=== PATIENT | male | born 1965 | race Caucasian/White ===

== ENCOUNTER 2024-01-08 08:48 | Emergency (ER) | payer MEDICARE, MEDICAID, SELFPAY ==
[2024-01-08] VITALS (35 sets, daily range): BP systolic 116–199; BP diastolic 66–111; PULSE 72–124; TEMP 36.3; O2SAT 72–97
--- NOTE | 2024-01-08 08:58 | XR_ITS ---
The [address] [address] Patient Name: MARIA ESTHER BARNES MRN: [id number] date: 1965 Sex: M Assigned Patient Location: ED.MAIN Current Patient Location: ED.MAIN Accession/Order Number: [id number] Exam Date: 01/08/2024 09:15 Report Date: 01/08/2024 09:43 At the request of: DELANEY HERNANDEZ Procedure: XR chest 1V EXAMINATION: XR chest 1V HISTORY: sob COMPARISON: 05/12/2022 TECHNIQUE: Supine FINDINGS: LUNGS: Near complete opacification of the left hemithorax obscuring the diaphragm and heart. Tracheostomy cannula projects of the mid trachea, normal position. The right lung is clear VASCULATURE: No increased pulmonary vasculature. PLEURA: No pneumothorax. Likely left pleural effusion CARDIAC: No cardiomegaly or cardiac silhouette abnormality. MEDIASTINUM: No visible mass or adenopathy. Left pacemaker BONES: No fracture or visible bone lesion. OTHER: Right central venous catheter tips project over the right atrium XR/XR chest 1V IMPRESSION: Near complete opacification of the left hemithorax Electronically authenticated by: PRESTON CHEN Date: 01/08/2024 09:43
[2024-01-08 09:15] LABS: Hematocrit 39.1 % (42.0-54.0); Hemoglobin 13.5 g/dL (14.0-18.0); Mean Corpuscular HGB Conc 34.5 g/dL (29.9-35.2); Mean Corpuscular Hemoglobin 30.4 pg (25.9-34.0); Mean Corpuscular Volume 88.1 fL (80.0-94.0); Mean Platelet Volume 9.7 fL (9.5-13.5); Platelet Count 228 10^3/uL (150-450); Red Blood Count 4.44 10^6/uL (4.70-6.10); Red Cell Distribution Width 15.2 % (11.0-15.0); White Blood Count 20.1 10^3/uL (4.0-11.0)
[2024-01-08 09:20] LABS: PCO2 VBG 42.8 mmHg (40.0-52.0); pH VBG 7.369 (7.330-7.430)
[2024-01-08] MEDS: AMIODARONE IN DEXTROSE,ISO-OSM 150 MG/100 ML PIGGYBACK 600 MG IV (09:26)
[2024-01-08 09:27] LABS: Segmented Neut Absolute Manual 18.49 10^3/uL (1.4-6.5)
--- NOTE | 2024-01-08 09:32 | ED.GENADUL1 ---
HPI HPI - General Adult General Chief complaint: Shortness of Breath/Dyspnea Stated complaint: GENERAL WEAKNESS Time Seen by Provider: 01/08/24 08:52 Source: EMR Mode of arrival: ambulance Limitations: language barrier and physical limitation History of Present Illness HPI narrative: Patient is a 58-year-old male who is presenting from [facility] secondary to hypoxia, confusion weakness. Patient's medical physician is Dr. Matias. Patient has been at the [facility] previously. Patient has past medical history of pacemaker, type 1 diabetes, tremor, chronic kidney disease, anemia, BPH, acute respiratory failure with hypoxia, hypercholesterolemia, hypertension, tracheotomy, IA, renal dialysis, CHF, A-fib, cardiac arrest, bilateral amputee AKA. Patient is a full code. Patient goes to dialysis on Monday Patient does albuterol nebulizers, lactulose, levothyroxine, midodrine, oxycodone, vitamins, patient has been on lactulose as well. Patient is on amiodarone tablets, Eliquis. All systems are negative except as noted/marked. All systems reviewed and otherwise negative. Nurses note and vital signs reviewed and patient is not hypoxic. General: The patient appears well and in no apparent distress. Patient is resting comfortably on cart. Patient is not toxic, lethargic, or listless Skin: Warm, dry, no pallor noted. There is no rash noted. No petechiae, purpura. Head: Normocephalic, atraumatic Eye: Normal conjunctiva, no drainage, EOMI. PERRL Ears, Nose, Mouth, and Throat: oral mucosa is moist. Patient missing multiple teeth, no other intraoral pathology noted. Nares patent. Mouth without vesicles. Cardiovascular: Regular Rate and Rhythm, no murmur, gallop, rub. Patient has dialysis catheter to the right upper chest, no signs of infection or drainage. Respiratory: Patient is in no distress, no accessory muscle use, lungs are clear to auscultation, no wheezing, rales or rhonchi Back: non-tender, no CVA tenderness bilaterally to percussion. No CT LS midline pain GI: Soft, no tenderness to palpation, no masses appreciated. No rebound, guarding, or rigidity noted. No distention Musculoskeletal: Patient has full range of motion of all of the extremities, patient is a bilateral AKA. Patient has some redness and stage I ulcers to bilateral distal amputees of his lower extremities., no motor, sensory, or focal neurological deficits : Patient is circumcised, mild tenderness to palpation to bilateral testicles. No redness or signs of foreign years. Patient's diaper is covered in stool. Neurological: A&O x\2, mumbles, does not talk in complete sentences, patient knows his name and hospital he is at. Psychiatric: Cooperative Related Data Home Medications ?Medication ?Instructions ?Recorded ?Confirmed apixaban 2.5 mg tablet (Eliquis) 2.5 mg feeding tube BID 01/08/24 01/08/24 buspirone 15 mg tablet 15 mg PO BID 01/08/24 01/08/24 ceftazidime 2 gram solution for 2 g IV Q8H 01/08/24 01/08/24 injection clopidogrel 75 mg tablet 75 mg feeding tube DAILY 01/08/24 01/08/24 dicyclomine 20 mg tablet 20 mg PO BID PRN abdominal pain 01/08/24 01/08/24 docusate sodium 100 mg capsule 100 mg PO BID 01/08/24 01/08/24 (Colace) ferrous sulfate 325 mg (65 mg 325 mg PO DAILY 01/08/24 01/08/24 iron) tablet,delayed release guaifenesin 100 mg/5 mL oral 200 mg PO Q6H PRN congestion 01/08/24 01/08/24 liquid (Adult Tussin Chest Congestion) hydroxyzine HCl 25 mg tablet 25 mg PO Q6H PRN itching 01/08/24 01/08/24 ipratropium 0.5 mg-albuterol 3 mg 3 ml inhalation Q2H PRN shortness 01/08/24 01/08/24 (2.5 mg base)/3 mL nebulization of breath soln lactulose 10 gram/15 mL oral 20 g feeding tube DAILY 01/08/24 01/08/24 solution (Enulose) levetiracetam 250 mg tablet 250 mg PO DAILY 01/08/24 01/08/24 levetiracetam 250 mg tablet 250 mg PO DAILY 01/08/24 01/08/24 (Keppra) levetiracetam 500 mg tablet 500 mg PO DAILY 01/08/24 01/08/24 levothyroxine 50 mcg capsule 50 mcg PO DAILY 01/08/24 01/08/24 loperamide 2 mg capsule (Imodium 2 mg PO Q6H PRN loose stool 01/08/24 01/08/24 A-D) lorazepam 0.5 mg tablet (Ativan) 0.5 mg feeding tube Q6H PRN anxiety 01/08/24 01/08/24 midodrine 10 mg tablet 5 mg PO TID 01/08/24 01/08/24 midodrine 10 mg tablet 10 mg feeding tube Q4H PRN 01/08/24 01/08/24 hypotension mupirocin 2 % topical ointment 1 applic topical Q6H PRN pain 01/08/24 01/08/24 mupirocin 2 % topical ointment 1 applic topical QID 01/08/24 01/08/24 ondansetron HCl 4 mg tablet 4 mg PO Q8H 01/08/24 01/08/24 oxycodone 5 mg capsule 5 mg PO Q6H PRN pain 01/08/24 01/08/24 sertraline 100 mg tablet (Zoloft) 100 mg PO DAILY 01/08/24 01/08/24 Allergies Allergy/AdvReac Type Severity Reaction Status Date / Time lisinopril AdvReac Severe Unknown Verified 01/08/24 09:21 losartan AdvReac Severe Unknown Verified 01/08/24 09:21 morphine AdvReac Severe Unknown Verified 01/08/24 09:21 Opioids - Morphine Analogues AdvReac Severe Unknown Verified 01/08/24 09:21 shellfish derived AdvReac Severe Unknown Verified 01/08/24 09:21 Opioid HPI Opioid Management Most Recent Opioid Data: No Data to Display PFSH PFSH Social History Little interest or pleasure in doing things: not at all Feeling down, depressed, or hopeless: not at all Exam Constitutional Vital Signs, click to edit/add: Last Vital Signs Temp 97.3 F L 01/08/24 08:54 Pulse 81 01/08/24 12:30 Resp 25 H 01/08/24 12:30 BP 186/90 H 01/08/24 12:30 Pulse Ox 96 01/08/24 12:30 O2 Del Method Room Air 01/08/24 11:45 Course Vital Signs Vital signs: Vital Signs Temperature 97.3 F L 01/08/24 08:54 Pulse Rate 82 01/08/24 08:54 Respiratory Rate 22 H 01/08/24 08:54 Blood Pressure 152/87 H 01/08/24 08:54 Pulse Oximetry 93 L 01/08/24 08:54 Oxygen Delivery Method Venturi Mask 01/08/24 08:54 Temperature 97.3 F L 01/08/24 08:54 Pulse Rate 81 01/08/24 12:30 Respiratory Rate 25 H 01/08/24 12:30 Blood Pressure 186/90 H 01/08/24 12:30 Pulse Oximetry 96 01/08/24 12:30 Oxygen Delivery Method Room Air 01/08/24 11:45 Medical Decision Making MDM Narrative Medical decision making narrative: 899 patient has a wide-complex arrhythmia, intermittently going between 100-1 10 but nothing sustained above 100. Patient is started on amiodarone push and drip. Patient has multiple comorbidities. We will be reaching out to patient's Pap estate attorney or family to find out what hospital system he has been at previously and started initiating transfer once more lab work and testing comes back. 944 patient case was discussed with Aurea, patient's significant other. Patient was just recently at the [facility] for pneumonia. We are currently calling for transfer to the [facility]. She is aware of patient's intermittent ventricular tachycardia, hypoxia, and need for transfer secondary to needing tertiary care center. Patient has just recently been at the [facility]. Patient is a full code. Uncertain if patient had dialysis today or not, we are calling facility to confirm whether he did have dialysis today or not. Patient goes to dialysis on Monday, Monday, , Monday. Patient according to APR appears to be on Plavix and Eliquis, TECHNIQUE: Supine CXR FINDINGS: LUNGS: Near complete opacification of the left hemithorax obscuring the diaphragm and heart. Tracheostomy cannula projects of the mid trachea, normal position. The right lung is clear VASCULATURE: No increased pulmonary vasculature. PLEURA: No pneumothorax. Likely left pleural effusion CARDIAC: No cardiomegaly or cardiac silhouette abnormality. MEDIASTINUM: No visible mass or adenopathy. Left pacemaker BONES: No fracture or visible bone lesion. Spittle for transfer. Electronically authenticated by: PRESTON CHEN Date: 01/08/2024 09:43 1005 CATHLEEN CARROLL, speaking to nursing staff at [facility]. Patient only had few minutes - 5 to 10 minutes of dialysis this morning, and then he was transferred to the ER. 1022 patient has BUN of 169/creatinine 5.69. BNP >35,000. PTT 40. WBC 20, H&H is 13/39, platelets 228. Patient only had extreme minimal dilation of 5 to 10 minutes this morning. I did speak to the transfer line, I also spoke to the medicine quarterback at both [place] [address] Trujillo, is excepting the transfer and patient will be admitted to Dr. Lundberg. Patient will be transferred by EMS. Chest x-ray shows left pleural effusion of significance. Patient has been given 150 mg amiodarone bolus and is currently on a drip which has helped limit the intermittent wide complex arrhythmias moderately. 1240 patient has become slightly hypertensive, blood pressures in the 180s/90s. Patient has right upper chest dialysis catheter. 2 IVs have been established. Patient does have leukocytosis of 20,000, we do not have a source at this time. Patient's heart rate and cardiac rhythm has improved with amiodarone, and is been more stable normal sinus rhythm at time of transfer at this time. Patient be admitted to the medical team. Patient is currently still on amiodarone drip. Patient BUN and creatinine were elevated, BUN 169, creatinine 5.69. Patient did not complete his dialysis today, he only had a extremely short course of dialysis this morning Critical care time 55 minutes exclusive from separate billable procedures that were performed. The following was considered in the determination of critical care but not limited to the level of medical decision making, intensive cardiac and/or respiratory monitoring, frequent vital sign monitoring, evaluation of laboratory studies, evaluation of radiographic studies, oxygen monitoring, and constant monitoring and speaking to family at bedside Medical Records Medical records reviewed: Yes I reviewed the patient's medical records Lab Data Lab results reviewed: Yes I reviewed the patient's lab results Labs: Lab Results 01/08/24 Range/Units 09:08 WBC 20.1 H (4.0-11.0) 10^3/uL RBC 4.44 L (4.70-6.10) 10^6/uL Hgb 13.5 L (14.0-18.0) g/dL Hct 39.1 L (42.0-54.0) % MCV 88.1 (80.0-94.0) fL MCH 30.4 (25.9-34.0) pg MCHC 34.5 (29.9-35.2) g/dL RDW 15.2 H (11.0-15.0) % Plt Count 228 (150-450) 10^3/uL MPV 9.7 (9.5-13.5) fL Seg Neuts % (Manual) 92.0 H (43.0-75.0) Lymphocytes % (Manual) 1.0 L (20.5-60.0) % Monocytes % (Manual) 5.0 (1.7-12.0) % Eosinophils % (Manual) 2.0 (0.9-7.0) % Basophils % (Manual) 0.0 L (0.2-2.0) % Neutrophils # (Manual) 18.49 H (1.4-6.5) 10^3/uL Lymphocytes # (Manual) 0.20 L (1.20-3.80) 10^3/uL Monocytes # (Manual) 1.00 H (0.30-0.80) 10^3/uL Eosinophils # (Manual) 0.40 (0.00-0.70) 10^3/uL Basophils # (Manual) 0.00 (0.00-0.10) 10^3/uL PT 13.5 H (9.0-11.6) sec INR 1.31 APTT 40.2 H* (22.3-36.2) sec VBG pH 7.369 (7.330-7.430) VBG pCO2 42.8 (40.0-52.0) mmHg Sodium 140 (136-145) mmol/L Potassium 4.3 (3.5-5.1) mmol/L Chloride 98 (98-107) mmol/L Carbon Dioxide 21.5 (21.0-32.0) mmol/L Anion Gap 24.8 BUN 169.0 H* (7.0-18.0) mg/dL Creatinine 5.69 H* (0.70-1.30) mg/dL Est GFR ( Amer) 13 L (>=60 mL/min/1.73m^2) Est GFR (Non-Af Amer) 10 L (>=60 mL/min/1.73m^2) BUN/Creatinine Ratio 29.7 Glucose 212 H (74-106) mg/dL Lactate 2.7 H* (0.4-2.0) mmol/L Calcium 9.4 (8.5-10.1) mg/dL Total Bilirubin 1.0 (0.2-1.0) mg/dL AST 46 H (15-37) U/L ALT 51 (16-63) U/L Alkaline Phosphatase 110 (46-116) U/L Troponin I High Sens 30.5 (4.0-76.1) pg/mL NT-Pro-B Natriuret Pep >03336.0 H* (<=900.0) pg/mL Total Protein 7.3 (6.4-8.2) g/dL Albumin 1.8 L (3.4-5.0) g/dL Globulin 5.5 g/dL Albumin/Globulin Ratio 0.3 Lipase 66.0 (16.0-77.0) U/L Free T4 0.65 L (0.76-1.46) ng/dL TSH & Free T4 Interp 23.819 H (0.358-3.740) uIU/mL Imaging Data CT scan - pelvis: Radiologist's impression: ITS Impressions Chest X-Ray 01/08/24 08:58 IMPRESSION: Near complete opacification of the left hemithorax Electronically authenticated by: PRESTON CHEN Date: 01/08/2024 09:43 ECG Data Attestation: I personally reviewed and interpreted this ECG as follows: (EKG #1. Wide complex rhythm, wide QRS, no acute ST elevation, will compare to old EKG. Old EKG on April 03, 2022, these are new acute changes on today's EKG.) Prior ECG tracings: available for review (I have compared EKG today to April 03, 2022) Interpretation: EKG #2. Patient has baseline normal sinus rhythm 81 beats a minute. PVC noted. QTc of 327, patient does not have sustained wide-complex complexes. It is noted that patient is going in and out of wide-complex sustained rhythm, no tachycardia noted with heart rate greater than 100. Patient will then intermittently go into a baseline of normal sinus rhythm as well. Discharge Plan Discharge Chief Complaint: Shortness of Breath/Dyspnea Clinical Impression: Ventricular tachycardia, Hypoxia, Pleural effusion, left, End-stage renal disease (ESRD), Leukocytosis, Cardiac arrhythmia Patient Disposition: [facility] Time of Disposition Decision: 09:55 Discharge Location: [facility] Discharge location: [facility], Dr LUNDBERG Condition: Serious Mode of Transportation: EMS
[2024-01-08 09:42] LABS: INR 1.31; Prothrombin Time 13.5 sec (9.0-11.6)
[2024-01-08] MEDS: AMIODARONE IN DEXTROSE,ISO-OSM 360 MG/200 ML PLAST..BAG 33.333 MG IV (09:42)
[2024-01-08 09:48] LABS: Alanine Aminotransferase 51 U/L (16-63); Albumin Globulin Ratio 0.3; Albumin Level 1.8 g/dL (3.4-5.0); Alkaline Phosphatase 110 U/L (46-116); Anion Gap 24.8; Aspartate Amino Transferase 46 U/L (15-37); BUN Creatinine Ratio 29.7; Calcium 9.4 mg/dL (8.5-10.1); Carbon Dioxide 21.5 mmol/L (21.0-32.0); Chloride 98 mmol/L (98-107); Estimated GFR (African America 13 (>=60 mL/min/1.73m^2); Estimated GFR (Non-African Ame 10 (>=60 mL/min/1.73m^2); Globulin 5.5 g/dL; Glucose 212 mg/dL (74-106); Potassium 4.3 mmol/L (3.5-5.1); Sodium 140 mmol/L (136-145); Total Protein 7.3 g/dL (6.4-8.2); Troponin I High Sensitivity 30.5 pg/mL (4.0-76.1)
[2024-01-08 09:49] LABS: Partial Thromboplastin Time 40.2 sec (22.3-36.2)
[2024-01-08 09:51] LABS: Lactate/Lactic Acid 2.7 mmol/L (0.4-2.0); NT Pro B Type Natriuretic Pept >35000.0 pg/mL (<=900.0)
[2024-01-08 10:35] LABS: TSH W/ REFLEX FT4 23.819 uIU/mL (0.358-3.740)
[2024-01-08 11:05] LABS: Free T4 0.65 ng/dL (0.76-1.46)
--- NOTE | 2024-01-08 11:23 | PC.NURSE ---
Oxygen removed from Trach and pulse Ox. at 97% on room air, patient only uses oxygen as needed.
--- NOTE | 2024-01-08 12:45 | PC.NURSE ---
[facility] arrives at this time for transport.
--- NOTE | 2024-01-08 12:53 | PC.NURSE ---
Several calls placed to [facility] to give report, transfered all times to a different phone and no one will answer.
--- NOTE | 2024-01-08 13:12 | PC.NURSE ---
CARLY Ledezma from [facility] calls and is given report at this time.
== END 2024-01-08 12:56 | disposition short-term general hospital (02) ==
PROVIDERS: Emergency Provider Emergency Medicine; PCP Internal Medicine
DX: I47.20 Ventricular tachycardia, unspecified (principal); I49.9 Cardiac arrhythmia, unspecified; D72.829 Elevated white blood cell count, unspecified; R09.02 Hypoxemia; E10.22 Type 1 diabetes mellitus with diabetic chronic kidney disease; N18.6 End stage renal disease; R25.1 Tremor, unspecified; I25.2 Old myocardial infarction; N40.0 Benign prostatic hyperplasia without lower urinary tract symptoms; E78.00 Pure hypercholesterolemia, unspecified; I13.0 Hypertensive heart and chronic kidney disease with heart failure and stage 1 through stage 4 chronic kidney disease, or unspecified chronic kidney disease; I50.9 Heart failure, unspecified; I48.91 Unspecified atrial fibrillation; Z86.74 Personal history of sudden cardiac arrest; Z89.612 Acquired absence of left leg above knee; Z89.611 Acquired absence of right leg above knee; Z79.01 Long term (current) use of anticoagulants; Z79.899 Other long term (current) drug therapy; Z99.2 Dependence on renal dialysis; Z79.02 Long term (current) use of antithrombotics/antiplatelets; Z87.01 Personal history of pneumonia (recurrent); Z93.0 Tracheostomy status; Z95.0 Presence of cardiac pacemaker
CPT/HCPCS: 36415; 71045; 80053; 82140; 82800; 83605; 83690; 83880; 84439; 84443; 84484; 85007; 85027; 85610; 85730; 93005; 96365; 96366; 96376; 99285; J0283